=== PATIENT | male | born 2000 | race Two or more races ===

== ENCOUNTER 2018-07-13 16:19 | Emergency (ER) | payer OTHER ==
[2018-07-13 16:19] VITALS: BMI 25.1
[2018-07-13 16:30] VITALS: BP 140/79; PULSE 90; RESP 20; TEMP 98.2; O2SAT 100
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
--- NOTE | 2018-07-14 10:46 | RAD ---
Date of service: 07/13/2018 PROCEDURE: Cervical Spine Radiographs. HISTORY: Pain. COMPARISON: None available. TECHNIQUE: 3 views obtained. FINDINGS: BONES: Alignment maintained. No fracture. Dens Intact. DISC SPACES: Normal. SOFT TISSUES: Normal. No prevertebral soft tissue swelling. OTHER FINDINGS: None. IMPRESSION: No radiographic evidence of acute fracture or subluxation
== END 2018-07-13 18:18 | disposition home or self-care (01) ==
LOC: C.ER 16:19
DX: S16.1XXA Strain of muscle, fascia and tendon at neck level, initial encounter (principal); Y04.0XXA Assault by unarmed brawl or fight, initial encounter